=== PATIENT | female | born 1950 | race Two or more races ===

== ENCOUNTER → 2025-03-19 | Outpatient (CLI) | payer OTHER, MEDICAID, SELFPAY ==
--- NOTE | 2025-03-19 16:36 | XR_ITS ---
Examination: Knee bilateral, 6 views Technique: Knee AP, lateral, oblique each knee total 6 views Date and time of exam: March 19, 2025 1638 hours INDICATIONS: Bilateral knee pain years FINDINGS: Significant osteopenia Advanced bilateral tricompartment osteoarthritis No fracture is Small bilateral knee effusions IMPRESSION: Advanced bilateral tricompartment osteoarthritis
== END | disposition home or self-care (01) ==
LOC: CDIM 16:29
PROVIDERS: Referring Provider Internal Medicine; Visit Provider Internal Medicine
DX: M17.0 Bilateral primary osteoarthritis of knee (principal)
CPT/HCPCS: 73562

== ENCOUNTER 2025-06-08 14:36 | Outpatient (AMB) | payer OTHER, MEDICAID, SELFPAY ==
[2025-06-08 15:02] VITALS: BP 162/82; PULSE 72; RESP 18; TEMP 36.2; O2SAT 96; BMI 31.6
--- NOTE | 2025-06-08 15:02 | PD.ORTHCLVIS ---
Vital signs 06/08/25 15:02 Height 1.6 m Height Method Measured Weight 80.91 kg Weight Measurement Method Standing Scale BMI 31.6 BP 162/82 H Blood Pressure Source Automatic Cuff Blood Pressure Location Left Upper Arm Position Sitting Respiration 18 Pulse 72 Pulse Source Monitor Temp 97.1 F Temp Source Temporal Artery Scan Pulse Oximetry (%) 96 Oxygen Delivery Method Room Air Med/Allergies Allergies & Medications Allergies NKA* Allergy (Uncoded 06/08/25 15:03) Medication Reconciliation amlodipine 5 mg tablet (Norvasc) 5 mg PO QDAY HBP #0 tabs 09/24/14 [History Confirmed 06/08/25] benazepril 20 mg tablet (Lotensin) 20 mg PO BID High Blood Pressure #0 tabs 09/24/14 [History Confirmed 06/08/25] Exam Exam Patient is in no acute distress and is cooperative with the examination today. Breathing is nonlabored. In no respiratory distress. Bilateral extremities were evaluated and demonstrates sensation intact to light touch. Palpable pedal pulses are present. No significant edema is present. Bilateral hips were examined. The patient has no pain with log roll of the hips. Internal rotation to 30 degrees and external rotation to 30 degrees is painless. Negative FADIR. The left knee was examined. The left knee is in varus alignment. Range of motion from 0-115 degrees. Knee is stable to varus and valgus as well as AP translation with <5mm. Patient has a negative McMurrays. There is no pain with patellofemoral compression and no crepitus noted. The knee is tender to palpation medially. The right knee was also examined. The right knee is in varus alignment. Range of motion from 0-120 degrees. Knee is stable to varus and valgus as well as AP translation with <5mm. Patient has a negative McMurrays. There is no pain with patellofemoral compression and no crepitus noted. The knee is tender to palpation medially. X-rays demonstrate severe joint space narrowing laterally on the right and medial joint space narrowing on the left. There is significant valgus deformity on the right knee and varus deformity in the left knee Assessment and Plan Problem List (1) Degenerative arthritis of knee, bilateral: Status: Acute Plan: Patient is a pleasant 75-year-old female with bilateral knee pain and bilateral knee arthritis. We discussed different treatment options. We discussed total knee replacement as well injections. She would like to continue with conservative treatment would like bilateral knee injections today Recommend knee cortisone injection as patient would like to proceed with conservative treatment at this time. The risks and benefits of the procedure were reviewed with the patient and patient gave verbal consent to continue with the procedure. Procedure: performed by Dr. Quiros Using sterile technique the left knee was thoroughly prepped with alcohol, and approximately 1 cc of Depo-Medrol 80mg/mL and 4 cc of 0.2% ropivacaine was injected without resistance into the medial tibial femoral joint space. The patient tolerated the procedure. Recommend knee cortisone injection as patient would like to proceed with conservative treatment at this time. The risks and benefits of the procedure were reviewed with the patient and patient gave verbal consent to continue with the procedure. Procedure: performed by Dr. Quiros Using sterile technique the Right knee was thoroughly prepped with alcohol, and approximately 1 cc of Depo-Medrol 80mg/mL and 4 cc of 0.2% ropivacaine was injected without resistance into the medial tibial femoral joint space. The patient tolerated the procedure. Advanced Care Planning Discussion Advance care planning discussed with:: patient Office Procedures GNS Level of Care Nursing/Assessment Patient Status: Initial/New Patient Nursing Assessment/Reassesment: Medication Reconciliation, Update PMH in EMR and Vital Signs Coordination of Care: Complex Care and Chronic Disease 1-5, Education Complex Pt/Fam, Consent,records obtained, informed consent, Lab and Imaging orders, Results/Orders obtained and Staff clarify orders Special Needs: Language special needs New Patient Charge New Patient Point Assignment: 1109 New Patient Point Charge: VP OF TECHNOLOGY Level 3 (4514-7019) Surgical Proc/IM SQ injection Major Surgical Procedure: Yes (BILATERAL KNEE INJECTION ) Medication Given Medication Given Medication Given: Yes Documented Dose Given: 2 Route: Infiitration Medication Given Medication Given Medication Given: Yes Documented Dose Given: 1 Route: Infiitration Medication Given Medication Given Medication Given: Yes Documented Dose Given: 4 Route: Infiitration Medication Given Medication Given Medication Given: Yes Documented Dose Given: 4 Route: Infiitration Office Meds methylprednisolone acetate 80 mg/mL suspension for injection Performing Provider: Jeison Quiros MD Performing Location: [facility] Administered by: Jeison Quiros MD on 06/08/25 15:30 Dose Route Admin Location Dispensed Lot Number Expiration Date [employer] Senior [employer] 80 mg intra-articular 1 mL [id number] [employer] methylprednisolone acetate 80 mg/mL suspension for injection Performing Provider: Jeison Quiros MD Performing Location: [facility] Administered by: Jeison Quiros MD on 06/08/25 15:32 Dose Route Admin Location Dispensed Lot Number Expiration Date [facility] Senior Chemical Engineer 80 mg intra-articular 1 mL [id number] [employer] ropivacaine (PF) 2 mg/mL (0.2 %) injection solution Performing Provider: Jeison Quiros MD Performing Location: [facility] Administered by: Jeison Quiros MD on 06/08/25 15:30 Dose Route Admin Location Dispensed Lot Number Expiration Date [facility] Senior Chemical Engineer 20 mL Infiltration 20 mL [id number] [facility] ropivacaine (PF) 2 mg/mL (0.2 %) injection solution Performing Provider: Jeison Quiros MD Performing Location: [facility] Administered by: Jeison Quiros MD on 06/08/25 15:32 Dose Route Admin Location Dispensed Lot Number Expiration Date [facility] Senior Chemical Engineer 20 mL Infiltration 20 mL [id number] [facility] [place] Intake Visit Data Collection New Patient or Established: New Patient (never been to [facility]) Reason for Visit:: OSTEOARTHRITIS BILATERAL KNEE PAIN Seen by Clinical Staff ONLY (RN/MA): No College Director Required: Yes PCP or OBGYN visit in last 3 months: Yes Hx Now: No Do You Feel Safe at Home: Yes Authorities Contacted: N/A Questionairres Past Medical History Past Medical History Have you ever been diagnosed with any of the following: Endocrine Problems Diabetes Mellitus Type 2: No Subjective Visit Visit for: new patient and knee Immunization / Flu Flu Vaccine in the Last 12 Months: Yes Flu Vaccine Exclusion Criteria: Already Received History of Present Illness Chief complaint: OSTEOARTHRITIS BILATERAL KNEE PAIN Date of injury / onset of symptoms: 12/2024 Patient is a pleasant 75-year-old female with left greater than right knee pain. Has been ongoing for several years. She has had multiple injections in the past. She is also tried anti-inflammatories. She does have a history of high blood pressure. Personal History Occupation: RETIRED Red flag PMH: none BMI Counceling provided: Yes Pain Pain level (0-10): 4 Pain location: outside (lateral) and posterior Pain quality: burning Pain timing: stairs Associated signs & symptoms: weakness Ambulatory data Ambulatory device: none Treatments Improvement with previous injections: No Improvement with PT: No Improvement with NSAIDS: no Review of Systems Review of Systems: All systems negative unless otherwise noted in HPI.
== END 2025-06-08 15:26 | disposition home or self-care (01) ==
PROVIDERS: PCP Internal Medicine; Referring Provider Internal Medicine; Supervising Provider Orthopaedic Surgery Adult Reconstructive Orthopaedic Surgery; Visit Provider Orthopaedic Surgery Adult Reconstructive Orthopaedic Surgery
DX: M17.0 Bilateral primary osteoarthritis of knee (principal); M25.562 Pain in left knee; M25.561 Pain in right knee
CPT/HCPCS: 20610; 99203; J1010; J2795; G0463

== ENCOUNTER → 2025-08-31 | Outpatient (CLI) | payer OTHER, MEDICAID, SELFPAY ==
[2025-08-31 10:48] LABS: Basophils # (Auto) 0.0 Thou/mm3 (0.0-0.2); Basophils % (Auto) 1 % (0-2.5); Eosinophils # (Auto) 0.1 Thou/mm3 (0.0-0.5); Eosinophils % (Auto) 2 % (0-10); Hematocrit 39.0 % (36.0-46.0); Hemoglobin 13.3 g/dL (12.0-16.0); Immature Granulocytes Auto 0.01 Thou/mm3 (0.00-0.00); Lymphocytes # (Auto) 1.9 Thou/mm3 (1.0-4.8); Lymphocytes % (Auto) 33 % (10-50); Mean Corpuscular HGB Conc 34.1 g/dl (31.0-37.0); Mean Corpuscular Hemoglobin 32.7 pg (25.0-35.0); Mean Corpuscular Volume 96 fL (80-100); Monocytes # (Auto) 0.5 Thou/mm3 (0.0-0.8); Monocytes % (Auto) 8 % (0-12); Neutrophils # (Auto) 3.1 Thou/mm3 (1.8-7.7); Neutrophils % (Auto) 56 % (37-80); Nucleated Red Blood Cell # 0.00 Thou/mm3 (0.00-0.00); Nucleated Red Blood Cell % 0 /100 WBC (0); Platelet Count 227 Thou/mm3 (140-440); RDW Standard Deviation 45.8 fL (36.4-46.3); Red Blood Count 4.07 Miln/mm3 (4.00-5.20); White Blood Count 5.6 Thou/mm3 (3.6-11.0)
[2025-08-31 11:15] LABS: Glucose Estimated Average 114 mg/dL (80-131); Hemoglobin A1C 5.6 % Hgb (4.8-6.0)
[2025-08-31 11:18] LABS: Vitamin D 25 Hydroxy Total 34.1 ng/mL (7.3-40.2)
[2025-08-31 11:25] LABS: Alanine Aminotransferase 13 U/L (10-49); Albumin, Serum 4.8 gm/dL (3.4-4.8); Albumin/Globulin Ratio 2.7 (1.2-2.2); Alkaline Phosphatase 56 U/L (46-116); Anion Gap 9 (7-16); Aspartate Amino Transferase 18 U/L (0-34); BUN/Creatinine Ratio 19 Ratio (12-20); Bilirubin,Total 0.8 mg/dL (0.3-1.2); Blood Urea Nitrogen 13 mg/dL (9-23); Calcium 9.8 mg/dL (8.3-10.6); Calcium (Corrected) 9.8 mg/dL (8.5-10.1); Carbon Dioxide 27.5 mMol/L (20.0-31.0); Cardiac Risk Estimate 3.2 RATIO (3.7-5.6); Chloride 104 mMol/L (98-107); Cholesterol 214 mg/dL (132-200); Creatinine (Component) 0.7 mg/dL (0.6-1.3); Free T4 (Free Thyroxine) 1.42 ng/dL (0.89-1.76); Globulin 1.8 gm/dL (2.3-3.5); Glucose 99 mg/dL (74-106); HDL Cholesterol 66 mg/dL (40-60); LDL Cholesterol,Calculated 129 mg/dL (0-130); Osmolality,Calculated 279 (275-295); Potassium 5.0 mMol/L (3.4-5.1); Sodium 140 mMol/L (136-145); Thyroid Stimulating Hormone 1.02 uIU/mL (0.55-4.78); Total Protein 6.6 gm/dL (5.7-8.2); Triglycerides 95 mg/dL (30-150); eGFR > 60 See Note
== END | disposition home or self-care (01) ==
LOC: COPL 09:20
PROVIDERS: PCP Internal Medicine; Referring Provider Internal Medicine; Visit Provider Internal Medicine
DX: Z00.00 Encounter for general adult medical examination without abnormal findings (principal); E55.9 Vitamin D deficiency, unspecified; E03.9 Hypothyroidism, unspecified
CPT/HCPCS: 36415; 80053; 80061; 82306; 83036; 84439; 84443; 85025

== ENCOUNTER 2025-09-13 14:33 | Outpatient (AMB) | payer OTHER, MEDICAID, SELFPAY ==
--- NOTE | 2025-09-13 14:40 | PD.ORTHCLVIS ---
Vital signs 09/13/25 14:41 Height 1.6 m Height Method Measured Weight 83.263 kg Weight Measurement Method Standing Scale BMI 32.5 BP 153/79 H Blood Pressure Source Automatic Cuff Blood Pressure Location Left Upper Arm Position Sitting Respiration 19 Pulse 68 Pulse Source Monitor Temp 97.6 F Temp Source Temporal Artery Scan Pulse Oximetry (%) 98 Oxygen Delivery Method Room Air Med/Allergies Allergies & Medications Allergies NKA* Allergy (Uncoded 09/13/25 14:42) Medication Reconciliation amlodipine 5 mg tablet (Norvasc) 5 mg PO QDAY HBP #0 tabs 09/24/14 [History Confirmed 09/13/25] benazepril 20 mg tablet (Lotensin) 20 mg PO BID High Blood Pressure #0 tabs 09/24/14 [History Confirmed 09/13/25] Exam Exam Patient is in no acute distress and is cooperative with the examination today. Breathing is nonlabored. In no respiratory distress. Bilateral extremities were evaluated and demonstrates sensation intact to light touch. Palpable pedal pulses are present. No significant edema is present. Bilateral hips were examined. The patient has no pain with log roll of the hips. Internal rotation to 30 degrees and external rotation to 30 degrees is painless. Negative FADIR. The left knee was examined. The left knee is in varus alignment. Range of motion from 0-115 degrees. Knee is stable to varus and valgus as well as AP translation with <5mm. Patient has a negative McMurrays. There is no pain with patellofemoral compression and no crepitus noted. The knee is tender to palpation medially. The right knee was also examined. The right knee is in varus alignment. Range of motion from 0-120 degrees. Knee is stable to varus and valgus as well as AP translation with <5mm. Patient has a negative McMurrays. There is no pain with patellofemoral compression and no crepitus noted. The knee is tender to palpation medially. X-rays demonstrate severe joint space narrowing laterally on the right and medial joint space narrowing on the left. There is significant valgus deformity on the right knee and varus deformity in the left knee Assessment and Plan Problem List (1) Degenerative arthritis of knee, bilateral: Status: Acute Plan: Patient is a pleasant 75-year-old female with bilateral knee pain and bilateral knee arthritis. We discussed different treatment options. We discussed total knee replacement as well injections. Given her failure of conservatibve treatment inlcuding multiple injections, NSAIDS, and home exercises. We thus discussed total knee replacement as a reasonable option. She reports that she did not get relief with the last injection. We will send her meloxicam. Advanced Care Planning Discussion Advance care planning discussed with:: patient Office Procedures GNS Level of Care Nursing/Assessment Patient Status: Established Patient Nursing Assessment/Reassesment: Medication Reconciliation, Update PMH in EMR and Vital Signs Coordination of Care: Complex Care and Chronic Disease 1-5, Education Complex Pt/Fam, Consent,records obtained, informed consent, Results/Orders obtained and Staff clarify orders Established Patient Charge Established Patient Point Assignment: 95 Established Patient Point Charge: EP Level 3 (80-115) MA Intake Visit Data Collection New Patient or Established: Established Patient (seen at [facility] within 3 years) Reason for Visit:: F/U BILATERAL KNEE INJECTIONS Seen by Clinical Staff ONLY (RN/MA): No Electronics Engineering Manager Required: Yes PCP or OBGYN visit in last 3 months: Yes Hx Now: No Do You Feel Safe at Home: Yes Authorities Contacted: N/A Questionairres Past Medical History Past Medical History Have you ever been diagnosed with any of the following: Endocrine Problems Diabetes Mellitus Type 2: No Subjective Visit Visit for: follow up visit and knee Immunization / Flu Flu Vaccine in the Last 12 Months: Yes Flu Vaccine Exclusion Criteria: Already Received History of Present Illness Chief complaint: F/U BILATERAL KNEE INJECTION Date of injury / onset of symptoms: 12/2024 Patient is a pleasant 75-year-old female with left greater than right knee pain. Has been ongoing for several years. She has had multiple injections in the past. She is also tried anti-inflammatories. She does have a history of high blood pressure. Personal History Occupation: RETIRED Red flag PMH: none BMI Counceling provided: Yes Pain Pain level (0-10): 4 Pain location: outside (lateral) and posterior Pain quality: burning Pain timing: stairs Associated signs & symptoms: weakness Ambulatory data Ambulatory device: none Treatments Improvement with previous injections: No Improvement with PT: No Improvement with NSAIDS: no Review of Systems Review of Systems: All systems negative unless otherwise noted in HPI.
[2025-09-13 14:41] VITALS: BP 153/79; PULSE 68; RESP 19; TEMP 36.4; O2SAT 98; BMI 32.5
== END 2025-09-13 15:01 | disposition home or self-care (01) ==
LOC: HODSRG 14:33
PROVIDERS: PCP Internal Medicine; Referring Provider Internal Medicine; Supervising Provider Orthopaedic Surgery Adult Reconstructive Orthopaedic Surgery; Visit Provider Orthopaedic Surgery Adult Reconstructive Orthopaedic Surgery
DX: M17.0 Bilateral primary osteoarthritis of knee (principal)
CPT/HCPCS: 99213; G0463